=== PATIENT | female | born 1940 | race Caucasian/White ===

== ENCOUNTER → 2016-05-20 | Outpatient (CLI) | payer MEDICARE, OTHER ==
--- NOTE | 2016-05-20 14:29 | RADRPT ---
PROCEDURE: XR Pelvis and Hips. CLINICAL INDICATION: Pelvic pain. Bilateral hip pain. TECHNIQUE: Five views. Frontal pelvis. Frontal and lateral right hip. Frontal and lateral left hip. COMPARISON: 06/05/2013. FINDINGS: There is no fracture. The soft tissues are normal. 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 There is no evidence of di slocation or loosening. There is no lytic or blastic lesion. The sacroiliac joints are unremarkable. IMPRESSION: 1. Satisfactory postoperative appearance of both hips. RPTAT: QQ .Jonah Avila MD, Date Time Electronically viewed and signed by .Jonah Avila MD, on 05/20/2016 14:28 .R/
--- NOTE | 2016-05-20 14:29 | RADRPT ---
PROCEDURE: Left knee radiographs. CLINICAL INDICATION: Left knee pain. TECHNIQUE: Four views. Weight bearing. Frontal, lateral, oblique, and patellar view. COMPARISON: No prior studies are available for comparison. FINDINGS: There is no fracture or dislocation. The soft tissues are normal. Articular surfaces are intact. There is no lytic or blastic lesion. There is no radiopaque foreign body. IMPRESSION: 1. Normal images of the left knee. RPTAT: QQ .Jonah Avila MD, MD Date Time Electronically viewed and signed by .Jonah Avila MD, MD on 05/20/2016 14:29 .R/
== END | disposition home or self-care (01) ==
LOC: HKI 10:18
PROVIDERS: ATTEND Orthopaedic Surgery
DX: T84.84XD Pain due to internal orthopedic prosthetic devices, implants and grafts, subsequent encounter (principal); M25.551 Pain in right hip; M25.562 Pain in left knee; Z96.643 Presence of artificial hip joint, bilateral
CPT/HCPCS: 73523; 73564; G0463